=== PATIENT | male | born 1985 | race Caucasian/White ===

== ENCOUNTER 2020-09-14 22:24 | Emergency (ER) | payer OTHER ==
[~2020-09-14 22:24] MED LIST: NORCO 5-325 TA1 EACH PO; ZOFRAN ODT 4 MG4 MG SL
[2020-09-15] MEDS ORDERED: VISTARIL 25 MG25 MG PO (02:21)
== END 2020-09-15 02:28 | disposition home or self-care (01) ==
LOC: ER1 22:24
DX: F41.9 Anxiety disorder, unspecified (principal); F17.200 Nicotine dependence, unspecified, uncomplicated
CPT/HCPCS: 71045; 93005; 99283